=== PATIENT | female | born 1960 | race African-American/Black ===

== ENCOUNTER 2017-06-19 09:26 | Inpatient (IN) | payer OTHER ==
[2017-06-19 10:31] VITALS: BMI 16.0
--- NOTE | 2017-06-19 11:10 | HP ---
COWS - Scale Resting Pulse: 1= ND 81-100 Sweatin= Chills/Flushing Restless Observation: 1= Difficult to Sit Still Pupil Size: 1= Pupils >than Normal Bone or Joint Aches: 2= Severe Diffuse Aches Runny Nose/ Eye Tearin= Runny Nose/Eyes GI Upset > 30mins: 2= Nausea/Diarrhea Tremor Observation: 2= Slight Tremor Visible Yawning Observation: 0= None Anxiety or Irritability: 2=Irritable/Anxious Goose Flesh Skin: 3=Piloerection COWS Score: 17 CIWA Score - CIWA Score Nausea/Vomitin-Int. Nausea w/Dry Heave Muscle Tremors: 3 Anxiety: 4-Mod. Anxious/Guarded Agitation: 2 Paroxysmal Sweats: 2 Orientation: 0-Oriented Tacttile Disturbances: 2-Mild Itch/Numbness/Burn Auditory Disturbances: 2-Mild Harshness/Frighten Visual Disturbances: 3-Moderate Sensitivity Headache: 0-None Present CIWA-Ar Total Score: 22 Admission ROS S - HPI Chief Complaint: "I am here because I want to get off drugs completely." Pt. is here to Detox from Alcohol and Heroin. Allergies/Adverse Reactions: Allergies Allergy/AdvReac Type Severity Reaction Status Date / Time No Known Allergies Allergy Verified 02/02/16 16:35 History of Present Illness: Pt. is a 57 YO female here to detox from Alcohol and Heroin. Pt. has had several previous Detox admissions at [facility]. Longest period of sobriety: approx. 5 days (01/2017). Exam Limitations: No Limitations - Ebola screening Have you traveled outside of the country in the last 21 days: No Have you had contact with anyone from an Ebola affected area: No Have you been sick,other than usual withdrawal symptoms: No Do you have a fever: No - Review of Systems Constitutional: Chills, Fever, Malaise, Night Sweats, Unintentional Wgt. Loss ( Lost approx. 30 lbs. over last 6 months.) EENT: reports: Nose Congestion, Sinus Pressure Respiratory: reports: SOB with Exertion Cardiac: reports: Syncope (Last episode: approx. 2 weeks ago. Taken via ambulance to [facility] for evaluation.) GI: reports: Nausea, Abdominal cramping Musculoskeletal: reports: Back Pain, Joint Pain, Muscle Pain, Joint Stiffness Integumentary: reports: No Symptoms Reported Neuro: reports: Numbness (Fingers of bilateral hands.), Tingling (Fingers of bilateral hands.), Tremors Endocrine: reports: No Symptoms Reported Hematology: reports: Anemia (Iron-deficiency type; takes Iron supplement and MVI.), Other (Positive for Sickle Cell Trait.) Psychiatric: reports: Judgement Intact, Mood/Affect Appropiate, Orientated x3, Depressed (Takes meds.) Other Systems: Reviewed and Negative Patient History - Patient Medical History Hx Anemia: Yes (on iron once a day) Hx Asthma: Yes (On meds.) Hx Chronic Obstructive Pulmonary Disease (COPD): No Hx Cancer: No Hx Cardiac Disorders: No Hx Congestive Heart Failure: No Hx Hypertension: No Hx Hypercholesterolemia: No Hx Pacemaker: No HX Cerebrovascular Accident: No Hx Seizures: No Hx Dementia: No Hx Diabetes: No Hx Gastrointestinal Disorders: No Hx Liver Disease: No Hx Genitourinary Disorders: No Hx Sexually Transmitted Disorders: No Hx Renal Disease (ESRD): No Hx Thyroid Disease: No Hx Human Immunodeficiency Virus (HIV): No (Last Tested: 01/2017: NEGATIVE.) Hx Hepatitis C: No (Last Tested: 01/2017: NEGATIVE.) Hx Depression: Yes (On meds.) Hx Suicide Attempt: No (PATIENT DENIES CURRENT SI / HI.) Hx Bipolar Disorder: No Hx Schizophrenia: No Other Medical History: DENIES. - Patient Surgical History Past Surgical History: Yes Hx Neurologic Surgery: No Hx Cataract Extraction: No Hx Cardiac Surgery: No Hx Lung Surgery: No Hx Breast Surgery: No Hx Breast Biopsy: No Hx Abdominal Surgery: Yes (intestinal obstruction repair, partial removal of Colon: 2013.) Hx Appendectomy: No Hx Cholecystectomy: No Hx Genitourinary Surgery: No Hx Section: No Hx Orthopedic Surgery: Yes (left arm in 2000/left jaw in 1990) Hx Hysterectomy: No Other Surgical History: removal of follopian tube right at age of 28 years; Eye surgery: 2012. Anesthesia Reaction: No - PPD History Previous Implant?: Yes Documented Results: Negative w/proof Implanted On Prior [facility] Admission?: Yes Date: 02/04/16 Results: 00mm PPD to be Administered?: No - Reproductive History Patient is a Female of Child Bearing Age (11 -55 yrs old): Yes LMP comment: Last: 2014. Patient : No - Smoking Cessation Smoking history: Current every day smoker Have you smoked in the past 12 months: Yes Aproximately how many cigarettes per day: 8 Cigars Per Day: 0 Hx Chewing Tobacco Use: No Initiated information on smoking cessation: No 'Breaking Loose' booklet given: 06/19/17 (GIVEN ON UNIT.) - Substance & Tx. History Hx Alcohol Use: Yes Hx Substance Use: Yes Substance Use Type: Alcohol, Cocaine, Heroin Hx Substance Use Treatment: Yes (Previous Detox admissions at [facility].) - Substances Abused Alcohol Route: Oral Frequency: Daily Amount used: vodka 1 pint Age of first use: 25 Date of Last Use: 06/19/17 Heroin Route: Inhalation Frequency: Daily Amount used: 3 to 4 bags /day Age of first use: 56 Date of Last Use: 06/19/17 Cocaine Route: Smoking Frequency: Daily Amount used: $80 /day Age of first use: 24 Date of Last Use: 06/19/17 Family Disease History - Family Disease History Family Disease History: Diabetes: Mother (DM), Heart Disease: Grandparent ( Asthma; [place].), Father (HTN; Alcohol; .), Respiratory: Grandparent, Other : Father, Mother, Sister (: Drug Overdose.) Admission Physical Exam [facility] - Vital Signs Vital Signs: Vital Signs - 24 hr 06/19/17 10:29 Temperature 97.3 F L Pulse Rate 90 Respiratory 20 Rate Blood Pressure 129/76 - Physical General Appearance: Yes: Appropriately Dressed, Mild Distress, Intoxicated, Thin , Tremorous, Anxious HEENTM: Yes: Hearing grossly Normal, Normocephalic, Normal Voice, NANCY, Pharynx Normal Respiratory: Yes: Chest Non-Tender, No Respiratory Distress, No Accessory Muscle Use, Wheezing Neck: Yes: No masses,lesions,Nodules, Supple, Trachea in good position Breast: Yes: Breast Exam Deferred Cardiology: Yes: Regular Rhythm, Regular Rate, S1, S2 Abdominal: Yes: Normal Bowel Sounds, Non Tender, Flat, Soft Genitourinary: Yes: Within Normal Limits Back: Yes: Decreased Range of Motion Musculoskeletal: Yes: Gait Steady, Back pain, Joint Stiffness Extremities: Yes: Tremors Neurological: Yes: Fully Oriented, Alert, Normal Mood/Affect, Normal Response Integumentary: Yes: Normal Color, Dry, Warm Lymphatic: Yes: Within Normal Limits - Diagnostic (1) Asthma Current Visit: Yes Status: Chronic Qualifiers: Asthma severity: moderate persistent Asthma complication type: uncomplicated Qualified Code(s): J45.40 - Moderate persistent asthma, uncomplicated (2) Nicotine dependence Current Visit: Yes Status: Chronic Qualifiers: Nicotine product type: cigarettes Substance use status: uncomplicated Qualified Code(s): F17.210 - Nicotine dependence, cigarettes, uncomplicated (3) Sickle cell trait Current Visit: Yes Status: Chronic (4) Alcohol dependence with uncomplicated withdrawal Current Visit: Yes Status: Acute (5) Opioid dependence with withdrawal Current Visit: Yes Status: Acute (6) Cocaine dependence, uncomplicated Current Visit: Yes Status: Acute (7) History of anemia Current Visit: Yes Status: Chronic (8) Arthritis of right knee Current Visit: Yes Status: Chronic (9) Lower back pain Current Visit: Yes Status: Chronic Qualifiers: Chronicity: chronic Back pain laterality: bilateral Sciatica presence: without sciatica Qualified Code(s): M54.5 - Low back pain; G89.29 - Other chronic pain Cleared for Admission [facility] - Detox or Rehab [facility] Level of Care: Medically Managed Detox Regimen/Protocol: Methadone/Librium [facility] Breath Alcohol Content Breath Alcohol Content: 0 Urine Pregancy Test - Result Urine Test Results: Negative- NO Line Present Urine Drug Screen - Results Drug Screen Negative: No Urine Drug Screen Results: RASHMI-Cocaine, OPI-Opiates
[2017-06-19] MEDS ORDERED: MENTHOL/PHENOL 1 EACH UD MM PRN (11:49)
[2017-06-19] MEDS ORDERED: diphenhydrAMINE HCL 50 MG CAPSULE PO PRN (11:49)
[2017-06-19] MEDS ORDERED: MAGNESIUM HYDROX 2400MG/30ML ORAL SUSPENSION 30 ML CUP PO PRN (11:49)
[2017-06-19] MEDS ORDERED: guaiFENesin/D-METHORPHAN HB 10 ML UNIT-DOSE CUPS PO PRN (11:49)
[2017-06-19] MEDS ORDERED: chlordiazePOXIDE HCL 25 MG CAPSULE PO ONE (11:49)
[2017-06-19] MEDS ORDERED: MAGNESIUM CITRATE 300 ML BOTTLE PO PRN (11:49)
[2017-06-19] MEDS ORDERED: MAG HYDROX/AL HYDROX/SIMETH 30 ML UNIT-DOSE CUP PO PRN (11:49)
[2017-06-19] MEDS ORDERED: P-EPHED 60MG/TRIPROLIDI 2.5MG TABLET PO PRN (11:49)
[2017-06-19] MEDS ORDERED: LOPERAMIDE HCL 2 MG CAPSULE PO PRN (11:49)
[2017-06-19] MEDS ORDERED: METHADONE HCL 10 MG TABLET (FOR DETOX USE ONLY) PO ONE ×2 (11:49→23:00)
[2017-06-19] MEDS ORDERED: ALBUTEROL SO4 6.7 GM HFA INHALER IH PRN (11:55)
[2017-06-19] MEDS ORDERED: NAPROXEN 500 MG TABLET (FP) PO SCH (12:00)
[2017-06-19] MEDS: NICOTINE 14 MG/24 HOURS TOPICAL PATCH TD SCH (13:12)
[2017-06-19] MEDS: ACETAMINOPHEN 325 MG TABLET (FP) PO PRN (13:16)
[2017-06-19] MEDS: NAPROXEN 500 MG TABLET (FP) PO PRN (17:28)
[2017-06-19] MEDS: chlordiazePOXIDE HCL 25 MG CAPSULE PO SCH ×2 (17:30→22:37)
[2017-06-19 19:11] LABS: URINE APPEARANCE CLEAR; URINE BILIRUBIN NEGATIVE (NEGATIVE); URINE BLOOD NEGATIVE (NEGATIVE); URINE COLOR LTYELLOW; URINE GLUCOSE (UA) NEGATIVE (NEGATIVE); URINE KETONE NEGATIVE (NEGATIVE); URINE LEUK ESTERASE NEGATIVE (NEGATIVE); URINE NITRITE NEGATIVE (NEGATIVE); URINE PROTEIN NEGATIVE (NEGATIVE); URINE UROBILINOGEN NEGATIVE mg/dL (0.2-1.0)
[2017-06-19] MEDS ORDERED: MONTELUKAST NA 10 MG TABLET PO SCH (22:00)
[2017-06-19] MEDS: MONTELUKAST NA 10 MG TABLET PO SCH (22:19)
[2017-06-19] MEDS: THIAMINE HCL 100 MG TABLET (FP) PO SCH (22:19)
[2017-06-19] MEDS: BUDESONIDE/FORMETEROL FUMARATE 160/4.5 mcg INHALER IH SCH (22:37)
[2017-06-20] MEDS: chlordiazePOXIDE HCL 25 MG CAPSULE PO SCH ×4 (05:45→22:17)
[2017-06-20] MEDS: ACETAMINOPHEN 325 MG TABLET (FP) PO PRN ×2 (05:45→14:08)
[2017-06-20] MEDS ORDERED: ZOLPIDEM TARTRATE 5 MG TABLET PO PRN (08:56)
--- NOTE | 2017-06-20 08:56 | CONSULT ---
[facility] Psychiatric Consult - Data Date of interview: 06/20/17 Admission source: [facility] Identifying data: This is 57 years old female with no psychiatric hospitalization history intoxiocated with: Alcohol, Cocaine, Opioids and Nicotine Substance Abuse History: Smoking Cessation. Smoking history: Current every day smoker. Have you smoked in the past 12 months: Yes. Aproximately how many cigarettes per day: 8. Cigars Per Day: 0. Hx Chewing Tobacco Use: No. Initiated information on smoking cessation: No. 'Breaking Loose' booklet given : 06/19/17 (GIVEN ON UNIT.). - Substance & Tx. History. Hx Alcohol Use: Yes. Hx Substance Use: Yes. Substance Use Type: Alcohol, Cocaine, Heroin. Hx Substance Use Treatment: Yes (Previous Detox admissions at [facility] - Substances Abused. Alcohol. Route: Oral. Frequency: Daily. Amount used: vodka 1 pint. Age of first use: 25. Date of Last Use: 06/19/17. Heroin. Route: Inhalation. Frequency: Daily. Amount used: 3 to 4 bags /day. Age of first use: 56. Date of Last Use: 06/19/17. Cocaine. Route: Smoking. Frequency: Daily. Amount used: $80 /day. Age of first use: 24. Date of Last Use: 06/19/17 Medical History: Right Knee injury history, mLBP, Anemia, Right eye blindness, Sickle Cell Trait, Cahexia hiostory Psychiatric History: Patioent reports depression,. anxiety, Panic Attack Disorder, reports taking prio to admission: Ambien 10mg po qhs. Vistaril 50mg po prn q4 for anxiety Physical/Sexual Abuse/Trauma History: Denies Additional Comment: Ambien 10mg po qhs. Vistaril 50mg po prn q4 for anxiety Mental Status Exam - Mental Status Exam Alert and Oriented to: Person Cognitive Function: Fair Patient Appearance: Unkempt Mood: Sad Affect: Flat Patient Behavior: Sedated Speech Pattern: Delayed Voice Loudness: Moderately Soft/Quiet Thought Process: Circumstantial Thought Disorder: Being Controlled Hallucinations: Denies Suicidal Ideation: Denies Homicidal Ideation: Denies Insight/Judgement: Fair Sleep: Difficulty falling asleep Appetite: Weight loss Muscle strength/Tone: Mild Hypotonicity Gait/Station: Shuffling Additional Comments: Ambien 10mg po qhs. Vistaril 50mg po prn q4 for anxiety Psychiatric Findings - Problem List ([place] 1, 2,3) (1) Alcohol dependence with uncomplicated withdrawal Current Visit: Yes Status: Acute (2) Cocaine dependence, uncomplicated Current Visit: Yes Status: Acute (3) Opioid dependence with withdrawal Current Visit: Yes Status: Acute (4) Nicotine dependence Current Visit: Yes Status: Chronic Qualifiers: Nicotine product type: cigarettes Substance use status: uncomplicated Qualified Code(s): F17.210 - Nicotine dependence, cigarettes, uncomplicated (5) Alcohol dependence Current Visit: No Status: Acute Qualifiers: Substance use status: in withdrawal Complication of substance-induced condition: uncomplicated Qualified Code(s): F10.230 - Alcohol dependence with withdrawal, uncomplicated (6) Opioid dependence Current Visit: No Status: Acute Qualifiers: Substance use status: in withdrawal Qualified Code(s): F11.23 - Opioid dependence with withdrawal (7) Sedative dependence Current Visit: No Status: Acute (8) Anxiety Disorder NOS Current Visit: No Status: Chronic (9) Anxiety and depression Current Visit: No Status: Chronic (10) Cocaine dependence Current Visit: No Status: Chronic Qualifiers: Substance use status: uncomplicated Qualified Code(s): F14.20 - Cocaine dependence, uncomplicated (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 Vistaril 50mg po prn q4 for anxiety
[2017-06-20 09:53] LABS: MCH 27.8 pg (25.7-33.7); MCHC 33.1 g/dl (32.0-36.0); MEAN PLT VOLUME 7.5 fl (7.5-11.1); PLATELET COUNT 305 K/MM3 (134-434); RDW 15.2 % (11.6-15.6)
[2017-06-20] MEDS ORDERED: METHADONE HCL 10 MG TABLET (FOR DETOX USE ONLY) PO SCH (10:00)
[2017-06-20 10:02] LABS: ALBUMIN 2.8 g/dl (3.4-5.0); ANION GAP 5 (8-16); CALCIUM 8.4 mg/dL (8.5-10.1); CO2 30 mmol/L (21-32); GLUCOSE,RANDOM 100 mg/dL (74-106)
[2017-06-20 10:06] LABS: ALK PHOS 84 U/L (45-117); BILIRUBIN,TOTAL 0.2 mg/dL (0.2-1.0); CREATININE 0.6 mg/dL (0.55-1.02); SGOT/AST 18 U/L (15-37); SGPT/ALT 24 U/L (12-78); TOT PROT 5.5 g/dl (6.4-8.2)
--- NOTE | 2017-06-20 10:07 | PN ---
[facility] CIWA - CIWA Score Nausea/Vomitin Muscle Tremors: 3 Anxiety: 3 Agitation: 2 Paroxysmal Sweats: 1-Minimal Palms Moist Orientation: 0-Oriented Tacttile Disturbances: 1-Very Mild Itch/Numbness Auditory Disturbances: 1-Very Mild Visual Disturbances: 1-Very Mild Sensitivity Headache: 2-Mild CIWA-Ar Total Score: 17 [facility] COWS - Scale Resting Pulse: 1= [place] 81-100 Sweatin= Chills/Flushing Restless Observation: 3= Extraneous Movement Pupil Size: 1= Pupils >than Normal Bone or Joint Aches: 2= Severe Diffuse Aches Runny Nose/ Eye Tearin= Runny Nose/Eyes GI Upset > 30mins: 2= Nausea/Diarrhea Tremor Observation of Outstretched Hands: 2= Slight Tremor Visible Yawning Observation: 1= 1-2x During Session Anxiety or Irritability: 2=Irritable/Anxious Goose Flesh Skin: 0=Smooth Skin COWS Score: [address] [facility] Progress Note (SOAP) Subjective: ALERT,IRRITABLE,ANXIOUS,INTERRUPTED SLEEP,TREMOR,PAIN IN THE BODY AND BACK Objective: 06/20/17 10:04 Vital Signs Temperature 98.1 F 06/20/17 09:55 Pulse Rate 92 H 06/20/17 09:55 Respiratory Rate 20 06/20/17 09:55 Blood Pressure 105/61 06/20/17 09:55 O2 Sat by Pulse Oximetry (%) EKG NSR Laboratory Last Values WBC 11.0 K/mm3 (4.0-10.0) H D 06/20/17 06:30 RBC 3.92 M/mm3 (3.60-5.2) 06/20/17 06:30 Hgb 10.9 GM/dL (10.7-15.3) 06/20/17 06:30 Hct 32.9 % (32.4-45.2) 06/20/17 06:30 MCV 84.0 fl (80-96) 06/20/17 06:30 MCH 27.8 pg (25.7-33.7) 06/20/17 06:30 MCHC 33.1 g/dl (32.0-36.0) 06/20/17 06:30 RDW 15.2 % (11.6-15.6) 06/20/17 06:30 Plt Count 305 K/MM3 (134-434) 06/20/17 06:30 MPV 7.5 fl (7.5-11.1) 06/20/17 06:30 Urine Color Ltyellow 06/19/17 17:00 Urine Appearance Clear 06/19/17 17:00 Urine pH 5.0 (5.0-8.0) 06/19/17 17:00 Ur Specific [place] 1.025 (1.005-1.025) 06/19/17 17:00 Urine Protein Negative (NEGATIVE) 06/19/17 17:00 Urine Glucose (UA) Negative (NEGATIVE) 06/19/17 17:00 Urine Ketones Negative (NEGATIVE) 06/19/17 17:00 Urine Blood Negative (NEGATIVE) 06/19/17 17:00 Urine Nitrite Negative (NEGATIVE) 06/19/17 17:00 Urine Bilirubin Negative (NEGATIVE) 06/19/17 17:00 Urine Urobilinogen Negative mg/dL (0.2-1.0) 06/19/17 17:00 Ur Leukocyte Esterase Negative (NEGATIVE) 06/19/17 17:00 LABS PENDING Assessment: 06/20/17 10:06 WITHDRAWAL SYMPTOM Plan: CONTINUE DETOX,ENCOURAGE ORAL FLUID
[2017-06-20] MEDS: PRENATAL VITAMINS W/ FOLIC ACID TABLET (FP) PO SCH (10:34)
[2017-06-20] MEDS: NAPROXEN 500 MG TABLET (FP) PO PRN ×2 (10:34→23:31)
[2017-06-20] MEDS: NICOTINE 14 MG/24 HOURS TOPICAL PATCH TD SCH (10:35)
[2017-06-20] MEDS: BUDESONIDE/FORMETEROL FUMARATE 160/4.5 mcg INHALER IH SCH ×2 (10:35→22:16)
--- NOTE | 2017-06-20 11:31 | EKG ---
Test Reason : Blood Pressure : / mmHG Vent. Rate : 081 BPM Atrial Rate : 081 BPM P-R Int : 210 ms QRS Dur : 070 ms QT Int : 380 ms P-R-T Axes : 059 045 037 degrees QTc Int : 441 ms SINUS RHYTHM WITH 1ST DEGREE A-V BLOCK POSSIBLE LEFT ATRIAL ENLARGEMENT BORDERLINE ECG NO PREVIOUS ECGS AVAILABLE Confirmed by JESSICA AGGARWAL MD ([id number]) on 06/20/2017 11:31:28 AM Referred By: Confirmed By:JESSICA AGGARWAL MD
[2017-06-20] MEDS: chlordiazePOXIDE HCL 25 MG CAPSULE PO PRN (14:08)
[2017-06-20] MEDS ORDERED: MONTELUKAST NA 10 MG TABLET PO SCH (22:00)
[2017-06-20] MEDS ORDERED: ZOLPIDEM TARTRATE 10 MG TABLET (PARK CARE ONLY) PO PRN (22:00)
[2017-06-20] MEDS: THIAMINE HCL 100 MG TABLET (FP) PO SCH (22:16)
[2017-06-20] MEDS: MONTELUKAST NA 10 MG TABLET PO SCH (22:16)
[2017-06-20] MEDS: hydrOXYzine PAMOATE 50 MG CAPSULE (FP) PO PRN (22:19)
[2017-06-20] MEDS: NICOTINE POLACRILEX 2 MG GUM BUC PRN (22:20)
[2017-06-21] MEDS: ACETAMINOPHEN 325 MG TABLET (FP) PO PRN ×2 (01:24→13:08)
[2017-06-21] MEDS: chlordiazePOXIDE HCL 25 MG CAPSULE PO PRN (03:34)
[2017-06-21] MEDS: chlordiazePOXIDE HCL 25 MG CAPSULE PO SCH ×2 (05:33→10:38)
--- NOTE | 2017-06-21 09:52 | PN ---
[facility] CIWA - CIWA Score Nausea/Vomitin Muscle Tremors: 3 Anxiety: 3 Agitation: 2 Paroxysmal Sweats: 1-Minimal Palms Moist Orientation: 0-Oriented Tacttile Disturbances: 1-Very Mild Itch/Numbness Auditory Disturbances: 1-Very Mild Visual Disturbances: 1-Very Mild Sensitivity Headache: 2-Mild CIWA-Ar Total Score: 17 [facility] COWS - Scale Resting Pulse: 2= [place] 101-120 Sweatin= Chills/Flushing Restless Observation: 3= Extraneous Movement Pupil Size: 1= Pupils >than Normal Bone or Joint Aches: 2= Severe Diffuse Aches Runny Nose/ Eye Tearin= Runny Nose/Eyes GI Upset > 30mins: 2= Nausea/Diarrhea Tremor Observation of Outstretched Hands: 2= Slight Tremor Visible Yawning Observation: 1= 1-2x During Session Anxiety or Irritability: 2=Irritable/Anxious Goose Flesh Skin: 0=Smooth Skin COWS Score: 18 S Progress Note (SOAP) Subjective: ALERT,IRRITABLE,ANXIOUS,INTERRUPTED SLEEP,PAIN IN THE BODY,BACK Objective: 06/21/17 09:50 Vital Signs Temperature 96.3 F L 06/21/17 09:33 Pulse Rate 104 H 06/21/17 09:33 Respiratory Rate 20 06/21/17 09:33 Blood Pressure 116/80 06/21/17 09:33 O2 Sat by Pulse Oximetry (%) Laboratory Last Values WBC 11.0 K/mm3 (4.0-10.0) H D 06/20/17 06:30 RBC 3.92 M/mm3 (3.60-5.2) 06/20/17 06:30 Hgb 10.9 GM/dL (10.7-15.3) 06/20/17 06:30 Hct 32.9 % (32.4-45.2) 06/20/17 06:30 MCV 84.0 fl (80-96) 06/20/17 06:30 MCH 27.8 pg (25.7-33.7) 06/20/17 06:30 MCHC 33.1 g/dl (32.0-36.0) 06/20/17 06:30 RDW 15.2 % (11.6-15.6) 06/20/17 06:30 Plt Count 305 K/MM3 (134-434) 06/20/17 06:30 MPV 7.5 fl (7.5-11.1) 06/20/17 06:30 Sodium 140 mmol/L (136-145) 06/20/17 06:30 Potassium 4.2 mmol/L (3.5-5.1) 06/20/17 06:30 Chloride 105 mmol/L (98-107) 06/20/17 06:30 Carbon Dioxide 30 mmol/L (21-32) 06/20/17 06:30 Anion Gap 5 (8-16) L 06/20/17 06:30 BUN 22 mg/dL (7-18) H D 06/20/17 06:30 Creatinine 0.6 mg/dL (0.55-1.02) 06/20/17 06:30 Creat Clearance w eGFR > 60 (>60) 06/20/17 06:30 Random Glucose 100 mg/dL (74-106) 06/20/17 06:30 Calcium 8.4 mg/dL (8.5-10.1) L 06/20/17 06:30 Total Bilirubin 0.2 mg/dL (0.2-1.0) D 06/20/17 06:30 AST 18 U/L (15-37) D 06/20/17 06:30 ALT 24 U/L (12-78) 06/20/17 06:30 Alkaline Phosphatase 84 U/L (45-117) 06/20/17 06:30 Total Protein 5.5 g/dl (6.4-8.2) L 06/20/17 06:30 Albumin 2.8 g/dl (3.4-5.0) L 06/20/17 06:30 Urine Color Ltyellow 06/19/17 17:00 Urine Appearance Clear 06/19/17 17:00 Urine pH 5.0 (5.0-8.0) 06/19/17 17:00 Ur Specific [place] 1.025 (1.005-1.025) 06/19/17 17:00 Urine Protein Negative (NEGATIVE) 06/19/17 17:00 Urine Glucose (UA) Negative (NEGATIVE) 06/19/17 17:00 Urine Ketones Negative (NEGATIVE) 06/19/17 17:00 Urine Blood Negative (NEGATIVE) 06/19/17 17:00 Urine Nitrite Negative (NEGATIVE) 06/19/17 17:00 Urine Bilirubin Negative (NEGATIVE) 06/19/17 17:00 Urine Urobilinogen Negative mg/dL (0.2-1.0) 06/19/17 17:00 Ur Leukocyte Esterase Negative (NEGATIVE) 06/19/17 17:00 RPR Titer Nonreactive (NONREACTIVE) 06/20/17 06:30 Assessment: 06/21/17 09:51 WITHDRAWAL SYMPTOM Plan: CONTINUE DETOX,ENCOURAGE ORAL FLUID
[2017-06-21] MEDS: PRENATAL VITAMINS W/ FOLIC ACID TABLET (FP) PO SCH (10:37)
[2017-06-21] MEDS: NAPROXEN 500 MG TABLET (FP) PO PRN (10:37)
[2017-06-21] MEDS: BUDESONIDE/FORMETEROL FUMARATE 160/4.5 mcg INHALER IH SCH ×2 (10:37→22:24)
[2017-06-21] MEDS: NICOTINE 14 MG/24 HOURS TOPICAL PATCH TD SCH (10:38)
[2017-06-21] MEDS: METHADONE HCL 5 MG TABLET (FOR DETOX USE ONLY) PO SCH (10:38)
[2017-06-21] MEDS: NICOTINE POLACRILEX 2 MG GUM BUC PRN (17:21)
[2017-06-21] MEDS: chlordiazePOXIDE 5 MG CAPSULE PO SCH ×2 (17:21→22:24)
[2017-06-21] MEDS: MONTELUKAST NA 10 MG TABLET PO SCH (22:24)
[2017-06-21] MEDS: THIAMINE HCL 100 MG TABLET (FP) PO SCH (22:24)
[2017-06-22] MEDS: ACETAMINOPHEN 325 MG TABLET (FP) PO PRN ×2 (01:36→05:20)
[2017-06-22] MEDS: chlordiazePOXIDE 5 MG CAPSULE PO SCH ×2 (05:18→10:15)
[2017-06-22] MEDS: hydrOXYzine PAMOATE 50 MG CAPSULE (FP) PO PRN (06:53)
--- NOTE | 2017-06-22 09:12 | PN ---
[facility] Progress Note (SOAP) Subjective: ALERT,IRRITABLE,ANXIOUS,INTERRUPTED SLEEP,PAIN IN THE BODY Objective: 06/22/17 09:11 Vital Signs Temperature 97.1 F L 06/22/17 06:18 Pulse Rate 74 06/22/17 06:18 Respiratory Rate 18 06/22/17 06:18 Blood Pressure 111/76 06/22/17 06:18 O2 Sat by Pulse Oximetry (%) Assessment: 06/22/17 09:11 WITHDRAWAL SYMPTOM Plan: CONTINUE DETOX
--- NOTE | 2017-06-22 09:14 | PN ---
S Progress Note Note: PATIENT DID NOT WANT TO COMPLETE TREATMENT DUE TO FAMILY EMERGENCY,SEEN BY COUNSELOR,SIGNED RELEASE AMA
--- NOTE | 2017-06-22 09:23 | DS ---
[facility] Detox Discharge Summary Admission Date: 06/19/17 Discharge Date: 06/22/17 - History Present History: Alcohol Dependence, Cocaine Dependence, Opioid Dependence Additional Comments: PATIENT DID NOT WANT TO COMPLETE TREATMENT DUE TO FAMILY EMERGENCY,SIGNED RELEASE AMA,SEEN BY COUNSELOR Pertinent Past History: ASTHMA ANEMIA HISTORY ARTHRITIS OF RIGHT KNEE LOW BACK PAIN - Physical Exam Results Vital Signs: Vital Signs Temperature 97.1 F L 06/22/17 06:18 Pulse Rate 74 06/22/17 06:18 Respiratory Rate 18 06/22/17 06:18 Blood Pressure 111/76 06/22/17 06:18 O2 Sat by Pulse Oximetry (%) Pertinent Admission Physical Exam Findings: WITHDRAWAL SYMPTOM - Medication Discharge Medications: Ambulatory Orders Zolpidem Tartrate [Ambien] 10 mg PO HS #30 06/26/15 Albuterol Sulfate Inhaler - [Ventolin HFA Inhaler -] 2 inh PO Q4H PRN #1 inhaler 02/07/16 Budesonide/Formeterol Fumarate [SYMBICORT 160/4.5mcg -] 1 inh PO BID #1 inhaler 02/07/16 Montelukast Na [Singulair -] 10 mg PO HS #30 tablet 02/07/16 Clonazepam [KlonoPIN] 0.5 mg PO DAILY 06/19/17 Naproxen [Naprosyn -] 500 mg PO PRN 06/19/17 Prednisone [Deltasone -] 20 mg PO DAILY 06/19/17 - AMA Did Patient Leave Against Medical Advice: Yes
[2017-06-22 09:37] VITALS: BP 117/80; PULSE 88; TEMP 97.9
[2017-06-22] MEDS: NICOTINE 14 MG/24 HOURS TOPICAL PATCH TD SCH (10:15)
[2017-06-22] MEDS: BUDESONIDE/FORMETEROL FUMARATE 160/4.5 mcg INHALER IH SCH (10:15)
[2017-06-22] MEDS: METHADONE HCL 5 MG TABLET (FOR DETOX USE ONLY) PO SCH (10:15)
[2017-06-22] MEDS: PRENATAL VITAMINS W/ FOLIC ACID TABLET (FP) PO SCH (10:15)
[2017-06-22] MEDS ORDERED: chlordiazePOXIDE HCL 10 MG CAPSULE PO SCH (17:00)
[2017-06-23] MEDS ORDERED: METHADONE HCL 10 MG TABLET (FOR DETOX USE ONLY) PO SCH (10:00)
[2017-06-24] MEDS ORDERED: METHADONE HCL 5 MG TABLET (FOR DETOX USE ONLY) PO SCH (06:00)
== END 2017-06-22 12:00 | disposition left against medical advice (07) | DRG 770 ==
LOC: YASAS 09:26 → Y6N 11:04
PROVIDERS: ADMIT Internal Medicine; ATTEND Internal Medicine
PROC: HZ2ZZZZ Detoxification Services for Substance Abuse Treatment (ICD-10-PCS; principal; 2017-06-19)
DX: F11.23 Opioid dependence with withdrawal (principal); F10.230 Alcohol dependence with withdrawal, uncomplicated; F14.20 Cocaine dependence, uncomplicated; F17.210 Nicotine dependence, cigarettes, uncomplicated; F19.280 Other psychoactive substance dependence with psychoactive substance-induced anxiety disorder; F41.8 Other specified anxiety disorders; F41.9 Anxiety disorder, unspecified; J45.40 Moderate persistent asthma, uncomplicated; H54.41 Blindness, right eye, normal vision left eye; M13.861 Other specified arthritis, right knee; M54.5 Low back pain; D57.3 Sickle-cell trait; D64.9 Anemia, unspecified; G47.00 Insomnia, unspecified; Z87.898 Personal history of other specified conditions
CPT/HCPCS: 36415; 80053; 81003; 85027; 86593; 93005; 93010

== ENCOUNTER 2017-10-25 16:24 | Inpatient (IN) | payer OTHER ==
[2017-10-25 18:21] VITALS: BMI 17.0
--- NOTE | 2017-10-25 20:37 | HP ---
COWS - Scale Resting Pulse: 1= NV 81-100 Sweatin= No chills or Flushing Restless Observation: 1= Difficult to Sit Still Pupil Size: 0= Normal to Room Light Bone or Joint Aches: 4=Acute Joint/Muscle Pain Runny Nose/ Eye Tearin= None GI Upset > 30mins: 0= None Tremor Observation: 1= Tremor Sparks, Not Seen Yawning Observation: 0= None Anxiety or Irritability: 1=Feels Anxious/Irritable Goose Flesh Skin: 0=Smooth Skin COWS Score: 8 CIWA Score - CIWA Score Nausea/Vomitin-No Nausea/No Vomiting Muscle Tremors: 2 Anxiety: 4-Mod. Anxious/Guarded Agitation: 4-Moderately Restless Paroxysmal Sweats: 1-Minimal Palms Moist Orientation: 0-Oriented Tacttile Disturbances: 1-Very Mild Itch/Numbness Auditory Disturbances: 0-None Visual Disturbances: 0-None Headache: 0-None Present CIWA-Ar Total Score: 12 Admission ROS S - HPI Chief Complaint: seeking detox txment for her alcohol and heroin dependence Allergies/Adverse Reactions: Allergies Allergy/AdvReac Type Severity Reaction Status Date / Time No Known Allergies Allergy Verified 02/02/16 16:35 History of Present Illness: 57 Y.O. MALE WITH HX OF OPIOID, ALCOHOL AND COCAINE DEPENDENCE HERE FOR ADMISSION TO DETOX. CLIENT IS KNOWN TO THIS PROGRAM. SELF REFERRED. DENIES ANY SIGNIFICANT PERIOD OF CLEAN TIME. UTOX ONLY POSITIVE FOR COCAINE. CLIENT STATES SHE HAS BEEN USING HEROIN CONSISTENTLY EVERYDAY. CLIENT INFORMED THAT SHE WILL NOT REIEVE DETOX TXMENT FOR OPIATES COWS SCORE IS NEGATIVE NO NO PRESENTING OPIATE WITHDRAWAL SX'S NOTED. CLIENT AGREES TO BE ADMITTED. Exam Limitations: No Limitations - Ebola screening Have you traveled outside of the country in the last 21 days: No Have you had contact with anyone from an Ebola affected area: No Have you been sick,other than usual withdrawal symptoms: No Do you have a fever: No - Review of Systems Constitutional: Malaise (JOINTAND BACK PAIN) EENT: reports: Other (R EYE BLINDNESS) Respiratory: reports: No Symptoms reported Cardiac: reports: No Symptoms Reported GI: reports: Constipated : reports: Other (HESITANCY) Musculoskeletal: reports: Back Pain, Joint Pain Integumentary: reports: No Symptoms Reported Neuro: reports: No Symptoms reported Endocrine: reports: No Symptoms Reported Hematology: reports: No Symptoms Reported Psychiatric: reports: Anxious Other Systems: Reviewed and Negative Patient History - Patient Medical History Hx Anemia: Yes Hx Asthma: Yes Hx Chronic Obstructive Pulmonary Disease (COPD): No Hx Cancer: No Hx Cardiac Disorders: No Hx Congestive Heart Failure: No Hx Hypertension: No Hx Hypercholesterolemia: No Hx Pacemaker: No HX Cerebrovascular Accident: No Hx Seizures: No Hx Dementia: No Hx Diabetes: No Hx Gastrointestinal Disorders: No Hx Liver Disease: No Hx Genitourinary Disorders: No Hx Sexually Transmitted Disorders: No Hx Renal Disease (ESRD): No Hx Thyroid Disease: No Hx Human Immunodeficiency Virus (HIV): No Hx Hepatitis C: No Hx Depression: No Hx Suicide Attempt: No Hx Bipolar Disorder: No Hx Schizophrenia: No Other Medical History: PANIC ATTACKS AND ANXIETY - Patient Surgical History Past Surgical History: Yes Hx Neurologic Surgery: No Hx Cataract Extraction: No Hx Cardiac Surgery: No Hx Lung Surgery: No Hx Breast Surgery: No Hx Breast Biopsy: No Hx Abdominal Surgery: Yes (intestinal obstruction repair, partial removal of Colon: 2013.) Hx Appendectomy: No Hx Cholecystectomy: No Hx Genitourinary Surgery: No Hx Section: No Hx Orthopedic Surgery: Yes (left arm in 2000/left jaw in 1990) Hx Hysterectomy: No Other Surgical History: removal of follopian tube right at age of 28 years; Eye surgery: 2012. Anesthesia Reaction: No - PPD History Previous Implant?: Yes Documented Results: Negative w/proof Implanted On [facility] Admission?: Yes Date: 06/21/17 Results: 00mm PPD to be Administered?: No - Reproductive History Last Menstrual Period: 03/28/14 - Smoking Cessation Smoking history: Current every day smoker Have you smoked in the past 12 months: Yes Aproximately how many cigarettes per day: 8 Cigars Per Day: 0 Hx Chewing Tobacco Use: No Initiated information on smoking cessation: Yes 'Breaking Loose' booklet given: 10/25/17 - Substance & Tx. History Hx Alcohol Use: Yes Hx Substance Use: Yes Substance Use Type: Alcohol Hx Substance Use Treatment: Yes ([facility]) - Substances Abused VODKA/BEER Route: Oral Frequency: Daily Amount used: 1/2 PINT/ 2-22 OZ Age of first use: 24 Date of Last Use: 10/25/17 COCAINE Route: Inhalation Frequency: Daily Amount used: 1/2 GM Age of first use: 21 Date of Last Use: 10/25/17 Family Disease History - Family Disease History Family Disease History: Diabetes: Mother (DM), Heart Disease: Grandparent ( Asthma; NC.), Father (HTN; Alcohol; .), Respiratory: Grandparent, Other : Father, Mother, Sister (: Drug Overdose.) Admission Physical Exam [facility] - Vital Signs Vital Signs: Vital Signs - 24 hr 10/25/17 18:19 Temperature 98.2 F Pulse Rate 83 Respiratory 18 Rate Blood Pressure 127/80 - Physical General Appearance: Yes: Appropriately Dressed, Intoxicated, Tremorous, Anxious , Other (CACHETIC) HEENTM: Yes: EOMI, Normocephalic, Pharynx Normal, Other (R PUPIL WITH WHITE SPOT PROTRUBENT EYE BALLS DENTURES) Respiratory: Yes: Chest Non-Tender, Lungs Clear, Normal Breath Sounds, No Respiratory Distress, No Accessory Muscle Use Neck: Yes: No masses,lesions,Nodules, Supple Breast: Yes: Breast Exam Deferred Cardiology: Yes: Regular Rhythm, Regular Rate, S1, S2 Abdominal: Yes: Normal Bowel Sounds, Non Tender, Flat, Soft, Surgical Scar Genitourinary: Yes: Hesitency Back: Yes: Normal Inspection Musculoskeletal: Yes: full range of Motion Extremities: Yes: Normal Capillary Refill, Normal Range of Motion, Non-Tender, Tremors Neurological: Yes: Alert, Motor Strength 5/5 Integumentary: Yes: Normal Color, Dry, Warm Lymphatic: Yes: Within Normal Limits - Diagnostic (1) Alcohol dependence with uncomplicated withdrawal Current Visit: No Status: Chronic (2) Asthma Current Visit: No Status: Chronic Qualifiers: Asthma severity: mild Asthma complication type: uncomplicated (3) Cocaine dependence Current Visit: No Status: Chronic Qualifiers: Substance use status: uncomplicated Qualified Code(s): F14.20 - Cocaine dependence, uncomplicated (4) Nicotine dependence Current Visit: No Status: Chronic Qualifiers: Nicotine product type: cigarettes Substance use status: uncomplicated Qualified Code(s): F17.210 - Nicotine dependence, cigarettes, uncomplicated (5) Blindness of right eye Current Visit: No Status: Chronic Cleared for Admission [facility] - Detox or Rehab [facility] Level of Care: Medically Managed Detox Regimen/Protocol: Librium [facility] Breath Alcohol Content Breath Alcohol Content: 0.087 Urine Pregancy Test - Result Urine Test Results: Negative- NO Line Present Urine Drug Screen - Results Drug Screen Negative: No Urine Drug Screen Results: RASHMI-Cocaine
[2017-10-25] MEDS ORDERED: MAG HYDROX/AL HYDROX/SIMETH 30 ML UNIT-DOSE CUP PO PRN (20:57)
[2017-10-25] MEDS ORDERED: guaiFENesin/D-METHORPHAN HB 10 ML UNIT-DOSE CUPS PO PRN (20:57)
[2017-10-25] MEDS ORDERED: LOPERAMIDE HCL 2 MG CAPSULE PO PRN (20:57)
[2017-10-25] MEDS ORDERED: IBUPROFEN 400 MG TABLET (FP) PO PRN (20:57)
[2017-10-25] MEDS ORDERED: MENTHOL/PHENOL 1 EACH UD MM PRN (20:57)
[2017-10-25] MEDS ORDERED: MAGNESIUM HYDROX 2400MG/30ML ORAL SUSPENSION 30 ML CUP PO PRN (20:57)
[2017-10-25] MEDS ORDERED: MAGNESIUM CITRATE 300 ML BOTTLE PO PRN (20:57)
[2017-10-25] MEDS ORDERED: P-EPHED 60MG/TRIPROLIDI 2.5MG TABLET PO PRN (20:57)
[2017-10-25] MEDS ORDERED: ALBUTEROL SO4 18 GM HFA INHALER IH PRN (21:01)
[2017-10-25] MEDS: THIAMINE HCL 100 MG TABLET (FP) PO SCH (23:07)
[2017-10-25] MEDS: MONTELUKAST NA 10 MG TABLET PO SCH (23:07)
[2017-10-25] MEDS: chlordiazePOXIDE HCL 25 MG CAPSULE PO SCH (23:07)
[2017-10-25] MEDS: BUDESONIDE/FORMETEROL FUMARATE 160/4.5 mcg INHALER IH SCH (23:07)
[2017-10-26] MEDS: chlordiazePOXIDE HCL 25 MG CAPSULE PO SCH ×4 (05:31→22:37)
--- NOTE | 2017-10-26 07:45 | CONSULT ---
[facility] Psychiatric Consult - Data Date of interview: 10/26/17 Admission source: [facility] Identifying data: This is 57 years old female with no psychiatric hospitalization history intoxicated with: Alcohol, Cocaine and Nicotine Substance Abuse History: Smoking history: Current every day smoker. Have you smoked in the past 12 months: Yes. Aproximately how many cigarettes per day: 8. Cigars Per Day: 0. Hx Chewing Tobacco Use: No. Initiated information on smoking cessation: Yes. 'Breaking Loose' booklet given: 10/25/17. - Substance & Tx. History. Hx Alcohol Use: Yes. Hx Substance Use: Yes. Substance Use Type : Alcohol. Hx Substance Use Treatment: Yes ([facility]). - Substances Abused. VODKA/BEER. Route: Oral. Frequency: Daily. Amount used: 1/2 PINT/ 2-22 OZ. Age of first use: 24. Date of Last Use: 10/25/17. COCAINE. Route: Inhalation. Frequency: Daily. Amount used: 1/2 GM. Age of first use: 21. Date of Last Use: 10/25/17 Medical History: Asthma, Right eye blindness Psychiatric History: Patient reports history of depression and anxiety, preoccupied with insomnia, reports takijng prior to admission: Ambien 10mg po qhs Physical/Sexual Abuse/Trauma History: Denies Additional Comment: Ambien 10mg po qhs Mental Status Exam - Mental Status Exam Alert and Oriented to: Person Cognitive Function: Fair Patient Appearance: Unkempt Mood: Sad Affect: Flat Patient Behavior: Sedated Speech Pattern: Delayed Voice Loudness: Mildly Soft/Quiet Thought Process: Circumstantial Thought Disorder: Being Controlled Hallucinations: Denies Suicidal Ideation: Denies Homicidal Ideation: Denies Insight/Judgement: Fair Sleep: Difficulty falling asleep Appetite: Weight loss Muscle strength/Tone: Mild Hypotonicity Gait/Station: Shuffling Additional Comments: Ambien 10mg po qhs Psychiatric Findings - Problem List ([place] 1, 2,3) (1) Drug-induced mood disorder Current Visit: Yes Status: Acute (2) Alcohol dependence Current Visit: No Status: Acute Qualifiers: Substance use status: in withdrawal Complication of substance-induced condition: uncomplicated Qualified Code(s): F10.230 - Alcohol dependence with withdrawal, uncomplicated (3) Cocaine dependence, uncomplicated Current Visit: No Status: Acute (4) Opioid dependence Current Visit: No Status: Acute Qualifiers: Substance use status: in withdrawal Qualified Code(s): F11.23 - Opioid dependence with withdrawal (5) Opioid dependence with withdrawal Current Visit: No Status: Acute (6) Sedative dependence Current Visit: No Status: Acute (7) Alcohol dependence with uncomplicated withdrawal Current Visit: No Status: Chronic (8) Anxiety Disorder NOS Current Visit: No Status: Chronic (9) Anxiety and depression Current Visit: No Status: Chronic (10) Cocaine dependence Current Visit: No Status: Chronic Qualifiers: Substance use status: uncomplicated Qualified Code(s): F14.20 - Cocaine dependence, uncomplicated (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
[2017-10-26 10:13] LABS: MCHC 32.6 g/dl (32.0-36.0); MEAN CELL VOLUME 82.8 fl (80-96); MEAN PLT VOLUME 7.9 fl (7.5-11.1); PLATELET COUNT 310 K/MM3 (134-434); RDW 15.2 % (11.6-15.6); WHITE BLOOD COUNT 6.8 K/mm3 (4.0-10.0)
[2017-10-26 10:20] LABS: ALBUMIN 2.7 g/dl (3.4-5.0); ALK PHOS 72 U/L (45-117); ANION GAP 4 (8-16); BILIRUBIN,TOTAL 0.3 mg/dL (0.2-1.0); CALCIUM 7.9 mg/dL (8.5-10.1); CO2 31 mmol/L (21-32); CREATININE 0.5 mg/dL (0.55-1.02); GLUCOSE,RANDOM 86 mg/dL (74-106); SGOT/AST 17 U/L (15-37); SGPT/ALT 20 U/L (12-78); TOT PROT 5.7 g/dl (6.4-8.2)
[2017-10-26 10:48] LABS: PH,URINE 5.5 (5.0-8.0); URINE APPEARANCE CLEAR; URINE BILIRUBIN NEGATIVE (NEGATIVE); URINE BLOOD NEGATIVE (NEGATIVE); URINE COLOR LT. YELLOW; URINE GLUCOSE (UA) NEGATIVE (NEGATIVE); URINE KETONE NEGATIVE (NEGATIVE); URINE NITRITE NEGATIVE (NEGATIVE); URINE PROTEIN NEGATIVE (NEGATIVE); URINE UROBILINOGEN 0.2 mg/dL (0.2-1.0)
[2017-10-26] MEDS: PRENATAL VITAMINS W/ FOLIC ACID TABLET (FP) PO SCH (11:49)
[2017-10-26] MEDS: NICOTINE 14 MG/24 HOURS TOPICAL PATCH TD SCH (11:49)
[2017-10-26] MEDS: BUDESONIDE/FORMETEROL FUMARATE 160/4.5 mcg INHALER IH SCH ×2 (11:50→22:57)
--- NOTE | 2017-10-26 12:48 | EKG ---
Test Reason : Blood Pressure : / mmHG Vent. Rate : 074 BPM Atrial Rate : 074 BPM P-R Int : 208 ms QRS Dur : 086 ms QT Int : 400 ms P-R-T Axes : 064 061 065 degrees QTc Int : 444 ms NORMAL SINUS RHYTHM NORMAL ECG WHEN COMPARED WITH ECG OF 19-JUN-2017 12:05, NO SIGNIFICANT CHANGE WAS FOUND Confirmed by MARYURI BYRD MD ([id number]) on 10/26/2017 12:47:55 PM Referred By: AUGUSTO MAX Confirmed By:MARYURI BYRD MD
--- NOTE | 2017-10-26 13:14 | PN ---
S CIWA - CIWA Score Nausea/Vomitin-No Nausea/No Vomiting Muscle Tremors: 4-Moderate,w/Arms Extend Anxiety: 3 Agitation: 4-Moderately Restless Paroxysmal Sweats: 3 Orientation: 0-Oriented Tacttile Disturbances: 0-None Auditory Disturbances: 0-None Visual Disturbances: 0-None Headache: 0-None Present CIWA-Ar Total Score: 14 BHS Progress Note (SOAP) Subjective: irritable agitation anxiety sweats shakes restless Objective: 10/26/17 13:13 Vital Signs Temperature 98.3 F 10/26/17 10:00 Pulse Rate 82 10/26/17 10:00 Respiratory Rate 18 10/26/17 10:00 Blood Pressure 140/96 10/26/17 10:00 O2 Sat by Pulse Oximetry (%) Laboratory Tests 10/25/17 10/26/17 10/26/17 00:00 07:00 07:00 WBC 6.8 D RBC 4.04 Hgb 10.9 Hct 33.5 MCV 82.8 MCH 27.0 MCHC 32.6 RDW 15.2 Plt Count 310 MPV 7.9 Sodium 143 Potassium 4.0 Chloride 108 H Carbon Dioxide 31 Anion Gap 4 L BUN 15 D Creatinine 0.5 L Creat Clearance w eGFR > 60 Random Glucose 86 Calcium 7.9 L Total Bilirubin 0.3 D AST 17 ALT 20 Alkaline Phosphatase 72 Total Protein 5.7 L Albumin 2.7 L Urine Color Lt. yellow Urine Appearance Clear Urine pH 5.5 Ur Specific [place] 1.020 Urine Protein Negative Urine Glucose (UA) Negative Urine Ketones Negative Urine Blood Negative Urine Nitrite Negative Urine Bilirubin Negative Urine Urobilinogen 0.2 RPR Titer 10/26/17 07:00 WBC RBC Hgb Hct MCV MCH MCHC RDW Plt Count MPV Sodium Potassium Chloride Carbon Dioxide Anion Gap BUN Creatinine Creat Clearance w eGFR Random Glucose Calcium Total Bilirubin AST ALT Alkaline Phosphatase Total Protein Albumin Urine Color Urine Appearance Urine pH Ur Specific [place] Urine Protein Urine Glucose (UA) Urine Ketones Urine Blood Urine Nitrite Urine Bilirubin Urine Urobilinogen RPR Titer Nonreactive aaox3 lying in bed no acute distress Assessment: 10/26/17 13:13 withdrawal sx Plan: continue detox increase fluids
[2017-10-26 20:30] LABS: URINE LEUK ESTERASE Negative (NEGATIVE)
[2017-10-26] MEDS ORDERED: ZOLPIDEM TARTRATE 10 MG TABLET (PARK CARE ONLY) PO PRN (22:00)
[2017-10-26] MEDS: MONTELUKAST NA 10 MG TABLET PO SCH (22:37)
[2017-10-26] MEDS: ACETAMINOPHEN 325 MG TABLET (FP) PO PRN (22:38)
[2017-10-26] MEDS: THIAMINE HCL 100 MG TABLET (FP) PO SCH (22:38)
[2017-10-26] MEDS ORDERED: ONDANSETRON *ODT* 4 MG TABLET SL ONE (23:38)
[2017-10-27] MEDS ORDERED: RANITIDINE HCL 150 MG TABLET (FP) PO ONE
[2017-10-27] MEDS ORDERED: TRIMETHOBENZAMIDE HCL 200MG/2ML INJ IM ONE (03:42)
[2017-10-27] MEDS: chlordiazePOXIDE HCL 25 MG CAPSULE PO SCH ×3 (05:39→17:14)
[2017-10-27] MEDS: ACETAMINOPHEN 325 MG TABLET (FP) PO PRN ×2 (05:40→17:11)
[2017-10-27] MEDS ORDERED: cloNIDine HCL 0.1 MG TABLET PO ONE (09:51)
[2017-10-27] MEDS ORDERED: cloNIDine HCL 0.1 MG TABLET PO SCH (10:00)
[2017-10-27] MEDS: BUDESONIDE/FORMETEROL FUMARATE 160/4.5 mcg INHALER IH SCH ×2 (10:54→22:09)
[2017-10-27] MEDS: PRENATAL VITAMINS W/ FOLIC ACID TABLET (FP) PO SCH (10:54)
[2017-10-27] MEDS: RANITIDINE HCL 150 MG TABLET (FP) PO SCH ×2 (10:54→22:07)
[2017-10-27] MEDS: NICOTINE 14 MG/24 HOURS TOPICAL PATCH TD SCH (10:57)
[2017-10-27] MEDS ORDERED: TRIMETHOBENZAMIDE HCL 200MG/2ML INJ IM PRN (12:14)
--- NOTE | 2017-10-27 12:44 | PN ---
S CIWA - CIWA Score Nausea/Vomitin Muscle Tremors: 3 Anxiety: 3 Agitation: 3 Paroxysmal Sweats: 3 Orientation: 0-Oriented Tacttile Disturbances: 0-None Auditory Disturbances: 0-None Visual Disturbances: 0-None Headache: 1-Very Mild CIWA-Ar Total Score: 16 BHS Progress Note (SOAP) Subjective: nausea/vomiting sweats body aches tired Objective: 10/27/17 12:40 Vital Signs Temperature 98.1 F 10/27/17 09:31 Pulse Rate 82 10/27/17 10:00 Respiratory Rate 18 10/27/17 10:00 Blood Pressure 128/80 10/27/17 10:00 O2 Sat by Pulse Oximetry (%) Laboratory Tests 10/25/17 10/26/17 10/26/17 00:00 07:00 07:00 WBC 6.8 D RBC 4.04 Hgb 10.9 Hct 33.5 MCV 82.8 MCH 27.0 MCHC 32.6 RDW 15.2 Plt Count 310 MPV 7.9 Sodium 143 Potassium 4.0 Chloride 108 H Carbon Dioxide 31 Anion Gap 4 L BUN 15 D Creatinine 0.5 L Creat Clearance w eGFR > 60 Random Glucose 86 Calcium 7.9 L Total Bilirubin 0.3 D AST 17 ALT 20 Alkaline Phosphatase 72 Total Protein 5.7 L Albumin 2.7 L Urine Color Lt. yellow Urine Appearance Clear Urine pH 5.5 Ur Specific [place] 1.020 Urine Protein Negative Urine Glucose (UA) Negative Urine Ketones Negative Urine Blood Negative Urine Nitrite Negative Urine Bilirubin Negative Urine Urobilinogen 0.2 Ur Leukocyte Esterase Negative RPR Titer 10/26/17 07:00 WBC RBC Hgb Hct MCV MCH MCHC RDW Plt Count MPV Sodium Potassium Chloride Carbon Dioxide Anion Gap BUN Creatinine Creat Clearance w eGFR Random Glucose Calcium Total Bilirubin AST ALT Alkaline Phosphatase Total Protein Albumin Urine Color Urine Appearance Urine pH Ur Specific [place] Urine Protein Urine Glucose (UA) Urine Ketones Urine Blood Urine Nitrite Urine Bilirubin Urine Urobilinogen Ur Leukocyte Esterase RPR Titer Nonreactive aaox3 ambulating no acute distress tigan IM prn Assessment: 10/27/17 12:44 withdrawal sx Plan: continue detox increase fluids tigan IM prn
[2017-10-27] MEDS ORDERED: ONDANSETRON *ODT* 4 MG TABLET SL PRN (15:36)
[2017-10-27] MEDS: chlordiazePOXIDE HCL 25 MG CAPSULE PO PRN (15:49)
[2017-10-27] MEDS: THIAMINE HCL 100 MG TABLET (FP) PO SCH (22:07)
[2017-10-27] MEDS: MONTELUKAST NA 10 MG TABLET PO SCH (22:08)
[2017-10-27] MEDS: chlordiazePOXIDE 5 MG CAPSULE PO SCH (22:08)
[2017-10-28] MEDS: chlordiazePOXIDE HCL 25 MG CAPSULE PO PRN (01:38)
[2017-10-28] MEDS: ACETAMINOPHEN 325 MG TABLET (FP) PO PRN ×2 (01:41→17:32)
[2017-10-28] MEDS: chlordiazePOXIDE 5 MG CAPSULE PO SCH ×3 (06:18→17:36)
--- NOTE | 2017-10-28 09:57 | PN ---
BHS Progress Note (SOAP) Subjective: nausea, sweats, interruped sleep, anxiety, trmeors, patient reports rwithdrawaing fro synthetic heroin blank did not show up on urine tox screen and is not recieving methadone Objective: 10/28/17 09:56 Vital Signs - 8 hr 10/28/17 10/28/17 03:30 06:40 Temperature 98.2 F Pulse Rate 87 Respiratory 18 18 Rate Blood Pressure 155/90 Laboratory Tests 10/25/17 10/26/17 10/26/17 00:00 07:00 07:00 WBC 6.8 D RBC 4.04 Hgb 10.9 Hct 33.5 MCV 82.8 MCH 27.0 MCHC 32.6 RDW 15.2 Plt Count 310 MPV 7.9 Sodium 143 Potassium 4.0 Chloride 108 H Carbon Dioxide 31 Anion Gap 4 L BUN 15 D Creatinine 0.5 L Creat Clearance w eGFR > 60 Random Glucose 86 Calcium 7.9 L Total Bilirubin 0.3 D AST 17 ALT 20 Alkaline Phosphatase 72 Total Protein 5.7 L Albumin 2.7 L Urine Color Lt. yellow Urine Appearance Clear Urine pH 5.5 Ur Specific [place] 1.020 Urine Protein Negative Urine Glucose (UA) Negative Urine Ketones Negative Urine Blood Negative Urine Nitrite Negative Urine Bilirubin Negative Urine Urobilinogen 0.2 Ur Leukocyte Esterase Negative RPR Titer 10/26/17 07:00 WBC RBC Hgb Hct MCV MCH MCHC RDW Plt Count MPV Sodium Potassium Chloride Carbon Dioxide Anion Gap BUN Creatinine Creat Clearance w eGFR Random Glucose Calcium Total Bilirubin AST ALT Alkaline Phosphatase Total Protein Albumin Urine Color Urine Appearance Urine pH Ur Specific [place] Urine Protein Urine Glucose (UA) Urine Ketones Urine Blood Urine Nitrite Urine Bilirubin Urine Urobilinogen Ur Leukocyte Esterase RPR Titer Nonreactive cachectic, aneia, poor skin turgor Assessment: 10/28/17 09:57 withdrawal sx, wt loss, dehydration cont detox, water at bedside, symptomatic relief of opioid withdrawal ordere.
[2017-10-28] MEDS ORDERED: cloNIDine HCL 0.1 MG TABLET PO SCH (10:00)
[2017-10-28] MEDS ORDERED: ONDANSETRON *ODT* 4 MG TABLET SL ONE (10:30)
[2017-10-28] MEDS: PRENATAL VITAMINS W/ FOLIC ACID TABLET (FP) PO SCH (10:50)
[2017-10-28] MEDS: RANITIDINE HCL 150 MG TABLET (FP) PO SCH (10:50)
[2017-10-28] MEDS: BUDESONIDE/FORMETEROL FUMARATE 160/4.5 mcg INHALER IH SCH (10:50)
[2017-10-28] MEDS: NICOTINE 14 MG/24 HOURS TOPICAL PATCH TD SCH (10:51)
[2017-10-28] MEDS ORDERED: hydrOXYzine HCL 25 MG TABLET (FP) PO SCH (14:00)
[2017-10-28 14:07] VITALS: BP 136/95; PULSE 98; TEMP 98.7
--- NOTE | 2017-10-28 17:27 | PN ---
S Progress Note Note: PT. REQUESTED TO LEAVE AMA. SPOKE WITH THE PT IN HER ROOM AND SHE ADVISED THAT SHE CONTINUE DETOX. HER V/S WERE ABNORMAL BP:128/79, P:121, R:16, T:99.5. SHE DENIED ANY CHEST PAIN, SOB, LIGHTHEADEDNESS. SHE WAS ENCOURAGED TO STAY UNTIL SHE V/S NORMALIZED. SHE VERBALIZED UNDERSTANDING BUT WAS ADAMANT SHE WANTED TO LEAVE. PLAN: CLONIDINE 0.1MG STAT, TYLENOL RECOMMENCED: FOLLOW-UP WITH HER PCP AND OUTPATIENT TREATMENT
[2017-10-28] MEDS ORDERED: cloNIDine HCL 0.1 MG TABLET PO ONE (17:30)
--- NOTE | 2017-10-28 22:10 | DS ---
[facility] Detox Discharge Summary Admission Date: 10/25/17 Discharge Date: 10/28/17 - History Present History: Alcohol Dependence, Cocaine Dependence Pertinent Past History: Laboratory Last Values WBC 6.8 K/mm3 (4.0-10.0) D 10/26/17 07:00 RBC 4.04 M/mm3 (3.60-5.2) 10/26/17 07:00 Hgb 10.9 GM/dL (10.7-15.3) 10/26/17 07:00 Hct 33.5 % (32.4-45.2) 10/26/17 07:00 MCV 82.8 fl (80-96) 10/26/17 07:00 MCH 27.0 pg (25.7-33.7) 10/26/17 07:00 MCHC 32.6 g/dl (32.0-36.0) 10/26/17 07:00 RDW 15.2 % (11.6-15.6) 10/26/17 07:00 Plt Count 310 K/MM3 (134-434) 10/26/17 07:00 MPV 7.9 fl (7.5-11.1) 10/26/17 07:00 Sodium 143 mmol/L (136-145) 10/26/17 07:00 Potassium 4.0 mmol/L (3.5-5.1) 10/26/17 07:00 Chloride 108 mmol/L (98-107) H 10/26/17 07:00 Carbon Dioxide 31 mmol/L (21-32) 10/26/17 07:00 Anion Gap 4 (8-16) L 10/26/17 07:00 BUN 15 mg/dL (7-18) D 10/26/17 07:00 Creatinine 0.5 mg/dL (0.55-1.02) L 10/26/17 07:00 Creat Clearance w eGFR > 60 (>60) 10/26/17 07:00 Random Glucose 86 mg/dL (74-106) 10/26/17 07:00 Calcium 7.9 mg/dL (8.5-10.1) L 10/26/17 07:00 Total Bilirubin 0.3 mg/dL (0.2-1.0) D 10/26/17 07:00 AST 17 U/L (15-37) 10/26/17 07:00 ALT 20 U/L (12-78) 10/26/17 07:00 Alkaline Phosphatase 72 U/L (45-117) 10/26/17 07:00 Total Protein 5.7 g/dl (6.4-8.2) L 10/26/17 07:00 Albumin 2.7 g/dl (3.4-5.0) L 10/26/17 07:00 Urine Color Lt. yellow 10/25/17 00:00 Urine Appearance Clear 10/25/17 00:00 Urine pH 5.5 (5.0-8.0) 10/25/17 00:00 Ur Specific [place] 1.020 (1.001-1.035) 10/25/17 00:00 Urine Protein Negative (NEGATIVE) 10/25/17 00:00 Urine Glucose (UA) Negative (NEGATIVE) 10/25/17 00:00 Urine Ketones Negative (NEGATIVE) 10/25/17 00:00 Urine Blood Negative (NEGATIVE) 10/25/17 00:00 Urine Nitrite Negative (NEGATIVE) 10/25/17 00:00 Urine Bilirubin Negative (NEGATIVE) 10/25/17 00:00 Urine Urobilinogen 0.2 mg/dL (0.2-1.0) 10/25/17 00:00 Ur Leukocyte Esterase Negative (NEGATIVE) 10/25/17 00:00 RPR Titer Nonreactive (NONREACTIVE) 10/26/17 07:00 - Physical Exam Results Vital Signs: Vital Signs Temperature 98.7 F 10/28/17 14:05 Pulse Rate 98 H 10/28/17 14:05 Respiratory Rate 16 10/28/17 14:05 Blood Pressure 136/95 10/28/17 14:05 O2 Sat by Pulse Oximetry (%) - Medication Discharge Medications: Ambulatory Orders Zolpidem Tartrate [Ambien] 10 mg PO HS #30 06/26/15 Zolpidem Tartrate [Ambien] 0 mg PO HS #14 tablet MDD 10 10/26/17 Albuterol Sulfate Inhaler - [Ventolin HFA Inhaler -] 2 inh PO Q4H PRN #1 inhaler 10/28/17 Budesonide/Formeterol Fumarate [SYMBICORT 160/4.5mcg -] 1 inh IH BID #1 inhaler 10/28/17 Hydroxyzine HCl [Atarax -] 50 mg PO TID #90 tablet 10/28/17 Montelukast Na [Singulair -] 10 mg PO HS #30 tablet 10/28/17 Vitamins (Sjr) - 1 tab PO DAILY #30 tablet 10/28/17 Thiamine HCl [Vitamin B1 -] 100 mg PO HS #30 tablet 10/28/17 - Diagnosis (1) Alcohol dependence with uncomplicated withdrawal Status: Chronic (2) Asthma Status: Chronic Qualifiers: Asthma severity: mild Asthma complication type: uncomplicated (3) Cocaine dependence Status: Chronic Qualifiers: Substance use status: uncomplicated Qualified Code(s): F14.20 - Cocaine dependence, uncomplicated (4) Nicotine dependence Status: Chronic Qualifiers: Nicotine product type: cigarettes Substance use status: uncomplicated Qualified Code(s): F17.210 - Nicotine dependence, cigarettes, uncomplicated - AMA Did Patient Leave Against Medical Advice: Yes
[2017-10-28] MEDS ORDERED: chlordiazePOXIDE HCL 10 MG CAPSULE PO SCH (23:00)
== END 2017-10-28 18:44 | disposition left against medical advice (07) | DRG 770 ==
LOC: YASAS 16:24 → Y6N 21:37
PROVIDERS: ADMIT Internal Medicine; ATTEND Internal Medicine
PROC: HZ2ZZZZ Detoxification Services for Substance Abuse Treatment (ICD-10-PCS; principal; 2017-10-25)
DX: F11.23 Opioid dependence with withdrawal (principal); F13.230 Sedative, hypnotic or anxiolytic dependence with withdrawal, uncomplicated; F10.230 Alcohol dependence with withdrawal, uncomplicated; F14.20 Cocaine dependence, uncomplicated; F19.24 Other psychoactive substance dependence with psychoactive substance-induced mood disorder; F41.8 Other specified anxiety disorders; H54.40 Blindness, one eye, unspecified eye
CPT/HCPCS: 36415; 80053; 81003; 85027; 86593; 93005; 93010